=== PATIENT | female | born 1960 | race Caucasian/White ===

== ENCOUNTER 2019-01-08 12:36 | Inpatient (IN) | payer MEDICAID, OTHER ==
[~2019-01-08] VITALS: Ht 157.5 cm; Wt 46.0 kg
[2019-01-08] MEDS ORDERED: ONDANSETRON HCL 4 MG/2 ML VIAL IV ONE (13:15)
[2019-01-08] MEDS ORDERED: MORPHINE SULFATE 4 MG/ML SYR/VIAL IV ONE (13:15)
[2019-01-08] MEDS ORDERED: cefTRIAXone 1GM/50ML D5W 50 ML IV ONE (13:30)
[2019-01-08] MEDS ORDERED: OXYCODONE W/ ACETAMINOPHEN 5/325MG TABLET PO PRN ×2 (13:30→16:30)
[2019-01-08] MEDS ORDERED: PANTOPRAZOLE 40 MG/10 ML VIAL INJ IV ONE (13:30)
[2019-01-08 13:43] LABS: Mean Corpuscular Hgb Conc. 32.4 g/dL (32.0-36.0); Monocytes # (auto) 0.9 uL
[2019-01-08 13:45] LABS: Basophils # (auto) 0 uL; Eosinophils # (auto) 0 uL; Eosinophils % (auto) 0.3 % (0.0-7.0); Hematocrit 34.1 % (36.0-46.0); Lymphocytes # (auto) 1.3 uL; Lymphocytes % (auto) 7.5 % (10.0-50.0); Mean Corpuscular Volume 95.6 fL (80.0-100.0); Monocytes % (auto) 5.5 % (0.0-12.0); Neutrophils # (auto) 14.5 uL; Neutrophils % (auto) 86.7 % (37.0-80.0); Nucleated Red Blood Cells % 0.1 %; Red Blood Cells 3.56 10^6/uL (4.0-5.20); Red Cell Distribution Width 19.4 % (11.8-14.3); White Blood Cell 16.7 10^3/uL (4.4-10.8)
[2019-01-08 13:59] LABS: Albumin 1.7 g/dL (3.4-5.0); BUN/Creatinine Ratio 43.8; Calcium 8.7 mg/dL (8.5-10.1); Magnesium 2.5 mg/dL (1.6-2.6); Potassium 4.4 mmol/L (3.5-5.1)
[2019-01-08 14:01] LABS: Lactic Acid w/Reflex 3.8 mmol/L (0.4-2.0)
[2019-01-08 14:04] LABS: INR 1.1 (0.9-1.15); Partial Thromboplastin Time 27.2 sec (23.64-32.05)
[2019-01-08 14:13] LABS: Bilirubin, Total 3.8 mg/dL (0.2-1.0); Total Protein 6.5 g/dL (6.4-8.2)
[2019-01-08 14:18] LABS: Platelet Count (auto) 481 10^3/uL (140-450)
[2019-01-08] MEDS: HYDROmorphone HCL 2 MG/ML VL IV PRN ×3 (16:07→22:27)
[2019-01-08] MEDS: ONDANSETRON HCL 4 MG/2 ML VIAL IV PRN (19:12)
[2019-01-08 22:00] VITALS: BP 113/60
[2019-01-09] MEDS: HYDROmorphone HCL 2 MG/ML VL IV PRN ×3 (01:47→08:09)
[2019-01-09 05:00] VITALS: BP 119/71
[2019-01-09 05:57] LABS: Urine Amorphous Crystal FEW /hpf (None Seen); Urine Bacteria FEW /hpf (None Seen); Urine Blood Negative /uL (Negative); Urine Hyaline Cast MOD /lpf (0 - 2); Urine Mucus FEW (None Seen); Urine Specific Gravity 1.022 (1.001-1.035); Urine WBC 25 /hpf (0 - 5)
[2019-01-09] MEDS: ONDANSETRON HCL 4 MG/2 ML VIAL IV PRN (08:08)
[2019-01-09 09:00] VITALS: BP 125/68
[2019-01-09] MEDS ORDERED: cefTRIAXone 1GM/50ML D5W 50 ML IV SCH (09:00)
[2019-01-09] MEDS ORDERED: PANTOPRAZOLE 40 MG/10 ML VIAL INJ IV SCH (10:00)
[2019-01-09] MEDS ORDERED: HYDROmorphone HCL 2 MG/ML VL IV ONE (12:00)
[2019-01-09 13:00] VITALS: BP 122/70
[2019-01-09] MEDS ORDERED: IPRIH INH (15:10)
[2019-01-09] MEDS ORDERED: FURO20TA3 PO (15:24)
[2019-01-09] MEDS ORDERED: MORP15TA PO (15:24)
[2019-01-09] MEDS ORDERED: LACT10SO3 PO (15:24)
[2019-01-09] MEDS ORDERED: ACET-1156 PO (15:24)
[2019-01-09] MEDS ORDERED: SPIR25TA88 PO (15:24)
[2019-01-09] MEDS ORDERED: HALO2CON8 PO (15:24)
[2019-01-09] MEDS ORDERED: LORA-654 PO (15:24)
[2019-01-09] MEDS ORDERED: HYDR2TAB58 PO (15:24)
[2019-01-09] MEDS ORDERED: BIS10RS PR (15:24)
[2019-01-09] MEDS ORDERED: TRAZ50TA2 PO (15:24)
[2019-01-09] MEDS ORDERED: METH10T GT (15:24)
[2019-01-09] MEDS ORDERED: HYOS0.1269 (15:24)
== END 2019-01-09 17:00 | disposition hospice, home (50) | DRG 240 ==
LOC: ER 12:40 → OVERFLOW 13:11 → WEST WING 16:56
PROVIDERS: ADMIT Internal Medicine; ATTEND Internal Medicine
PROC: 0W9G3ZZ Drainage of Peritoneal Cavity, Percutaneous Approach (ICD-10-PCS; principal; 2019-01-08)
DX: R18.0 Malignant ascites (principal); E43 Unspecified severe protein-calorie malnutrition; C79.51 Secondary malignant neoplasm of bone; F17.210 Nicotine dependence, cigarettes, uncomplicated; J44.9 Chronic obstructive pulmonary disease, unspecified; Z51.5 Encounter for palliative care; N39.0 Urinary tract infection, site not specified; N28.9 Disorder of kidney and ureter, unspecified; Z85.048 Personal history of other malignant neoplasm of rectum, rectosigmoid junction, and anus; Z85.118 Personal history of other malignant neoplasm of bronchus and lung; Z68.1 Body mass index [BMI] 19.9 or less, adult; Z85.05 Personal history of malignant neoplasm of liver
CPT/HCPCS: 10022; 36415; 71045; 76700; 76942; 80053; 81001; 82140; 83605; 83690; 83735; 85025; 85610; 85730; 87081; 93005; 94761; 96365; 96375; C9113; G0378; J0696; J2405